=== PATIENT | male | born 1995 | race Caucasian/White ===

== ENCOUNTER 2017-12-26 17:19 | Emergency (ER) | payer OTHER ==
--- NOTE | 2017-12-26 18:50 | ED ---
Respiratory - HPI Summary HPI Summary: 22-year-old male presents with cough and sore throat for the past day. He admits to some fatigue. He admits to occasional fevers. Admits to chest tightness with cough and shortness of breath when he coughs. He denies any abdominal pain. He denies any nausea vomiting or diarrhea. He has been taking ibuprofen with some relief. He states he has a past medical history of asthma that resolved when he was a child. Denies any pain or swelling in his calf muscles. He admits to sinus congestion. He is a smoker. - History of Current Complaint Chief Complaint: EDUpperRespComplaint Stated Complaint: COUGH/SORE THROAT Time Seen by Provider: 12/26/17 17:50 Pain Intensity: 8 - Allergy/Home Medications Allergies/Adverse Reactions: Allergies Allergy/AdvReac Type Severity Reaction Status Date / Time No Known Allergies Allergy Verified 08/04/16 15:54 PMH/Surg Hx/FS Hx/Imm Hx Endocrine/Hematology History: Denies: Hx Anticoagulant Therapy Respiratory History: Reports: Hx Asthma Infectious Disease History: No Infectious Disease History: Denies: Traveled Outside the [place] in Last 30 Days - Family History Known Family History: Positive: Respiratory Disease - Social History Alcohol Use: Rare Substance Use Type: Reports: Marijuana Smoking Status (MU): Current Some Day Smoker Review of Systems Negative: Fever Positive: Sore Throat Positive: Chest Pain Positive: Shortness Of Breath, Cough All Other Systems Reviewed And Are Negative: Yes Physical Exam Triage Information Reviewed: Yes Vital Signs On Initial Exam: Initial Vitals Temp Pulse Resp BP Pulse Ox 99.5 F 110 18 137/89 100 12/26/17 17:27 12/26/17 17:27 12/26/17 17:27 12/26/17 17:27 12/26/17 17:27 Vital Signs Reviewed: Yes Appearance: Positive: Well-Appearing Skin: Positive: Warm, Dry Head/Face: Positive: Normal Head/Face Inspection Eyes: Positive: Normal, EOMI, DEBORAH, Conjunctiva Clear ENT: Positive: Normal ENT inspection, Pharyngeal erythema, TMs normal, Uvula midline, Other - soft palate symmetric. Negative: Tonsillar swelling, Tonsillar exudate, Trismus, Muffled voice Neck: Positive: Supple, Nontender, No Lymphadenopathy Respiratory/Lung Sounds: Positive: Clear to Auscultation, Breath Sounds Present Cardiovascular: Positive: Normal, RRR Abdomen Description: Positive: Nontender, Soft Bowel Sounds: Positive: Present Musculoskeletal: Positive: Normal Neurological: Positive: Normal Psychiatric: Positive: Normal Diagnostics - Vital Signs Vital Signs Temp Pulse Resp BP Pulse Ox 12/26/17 18:04 13 12/26/17 18:03 131/72 12/26/17 17:27 99.5 F 110 18 137/89 100 - Laboratory Lab Results: Lab Results 12/26/17 12/26/17 Range/Units 18:21 18:21 Influenza A (Rapid) Negative (Negative) Influenza B (Rapid) Negative (Negative) Group A Strep Rapid Negative (Negative) Lab Statement: Any lab studies that have been ordered have been reviewed, and results considered in the medical decision making process. - Radiology chest Xray Interpretation: No Acute Changes Radiology Interpretation Completed By: Radiologist Disposition - Course Course Of Treatment: 22-year-old male presents with cough and sore throat for the past day. He admits to some fatigue. He admits to occasional fevers. Admits to chest tightness with cough and shortness of breath when he coughs. He denies any abdominal pain. He denies any nausea vomiting or diarrhea. He has been taking ibuprofen with some relief. He states he has a past medical history of asthma that resolved when he was a child. Denies any pain or swelling in his calf muscles. He admits to sinus congestion. On exam lungs clear to auscultation. Pharynx erythematous. Uvula midline. Soft palate is symmetric. flu and strept negative. Chest x-ray normal. Will treat with magic mouth wash, prednisone, inhaler and Tessalon. Patient understands and agrees with plan. - Differential Dx - Cardiopulmonary Differential Diagnoses - Cardiopulmonary: Bronchitis, Influenza, Lower Resp Infection, Other - strept - Diagnoses Provider Diagnoses: Upper respiratory infection Discharge - Discharge Plan Condition: Good Disposition: HOME Prescriptions: Benzonatate CAP* [Tessalon 100 MG CAP*] 100 mg PO TID PRN #21 cap PRN Reason: Cough Magic Mouth Was-RADHA/MAAL/LIDO* 5 ml SWISH SPIT QID #100 ml predniSONE TAB* [Deltasone TAB*] 50 mg PO DAILY #4 tab Patient Education Materials: Upper Respiratory Infection (ED) Referrals: [facility] [Primary Care Provider] - Additional Instructions: Magic mouthwash 5ml swish and spit can use 4x a day Use Tessalon three times a day for cough Use inhaler one puff every 4 hours for cough as needed Take steroid once a day for 5 days Use saline in the nose for nasal congestion Use humidifier or place warm bowls of water around the room for cough Follow up with primary care physician in 5 days Return to ED if develop any new or worsening symptoms
[2017-12-26] MEDS ORDERED: predniSONE TAB* 20 MG PO ONE (19:05)
--- NOTE | 2017-12-26 19:18 | RAD ---
INDICATION: Chest pain, shortness of breath, cough since yesterday. COMPARISON: March 10, 2017 TECHNIQUE: Dual energy PA and routine lateral views of the chest were obtained. REPORT: Elevated lung volumes. No focal pulmonary lesion, compelling alveolar consolidation, pleural effusion, pneumothorax. The heart, pulmonary vasculature, and mediastinal contours are unremarkable. IMPRESSION: Elevated lung volumes may reflect obstructive lung disease or simply exuberant inspiratory effort for examination. No evidence for pneumonia.
[2017-12-26] MEDS ORDERED: A lbuterol Hfa (PREPAK) 1 MDI - ED TAKE HOME DISPENSING ONLY INHH ONE (19:49)
[2017-12-26] MEDS ORDERED: Benzonatate CAP* 100 MG PO ONE (19:49)
[2017-12-26 20:35] VITALS: BP 128/76
== END 2017-12-26 20:34 | disposition home or self-care (01) ==
LOC: ED 17:19
DX: J06.9 Acute upper respiratory infection, unspecified (principal); F17.200 Nicotine dependence, unspecified, uncomplicated; J45.909 Unspecified asthma, uncomplicated
CPT/HCPCS: 71046; 87502; 87651; 99284; A9270-GY; J7512

== ENCOUNTER → 2018-09-12 | Emergency (ER) | payer MEDICAID, OTHER ==
[~2018-09-12] MED LIST: LORazepam TAB(*) 1 MG PO ONE
[2018-09-12 18:57] LABS: ABS Basophils 0 10^3/ul (0-0.2); ABS Eosinophils 0 10^3/ul (0-0.6); ABS Lymphocytes 0.8 10^3/ul (1.0-4.8); ABS Monocytes 0.5 10^3/ul (0-0.8); ABS Neutrophils 3.7 10^3/ul (1.5-7.7); ABS Nucleated RBC 0 10^3/ul; Eosinophil % 0.6 % (0-6); Hematocrit 40 % (42-52); Hemoglobin 14.2 g/dl (14.0-18.0); Lymphocyte % 16.2 % (25-47); Mean Corpuscular HGB Conc 36 g/dl (31-36); Mean Corpuscular Hemoglobin 32 pg (27-31); Mean Corpuscular Volume 88 fL (80-94); Mean Platelet Volume 8.2 um3 (7.4-10.4); Nucleated Red Blood Cells % 0.1; Platelet Count 196 10^3/ul (150-450); Red Cell Distribution Width 13 % (10.5-15)
[2018-09-12 19:12] LABS: EGFR Non-African American 99.9 (>60)
[2018-09-12 20:08] LABS: Urine Appearance Clear; Urine Blood Negative (Negative); Urine Color Straw; Urine Ketones Negative (Negative); Urine Protein Negative (Negative); Urine Specific Gravity 1.006 (1.010-1.030); Urine Urobilinogen Negative (Negative)
--- NOTE | 2018-09-12 21:22 | ED ---
Psychiatric Complaint - HPI Summary HPI Summary: Patient is a 22 y/o M w/ c/o anxiety and depression. He states that his girlfriend's grandfather, who he was close with and his own grandfather recently . Patient states he has been having difficulty sleeping, noting he has been getting an hour of sleep each day for the past five days. SI, HI denied. He notes that he grew up in a dysfunctional home environment and reports FMHx of depression and anxiety. Patient reports recent back pain as well. Patient denies fever, chills, DELUCA, ear pain, sore throat, blurred vision, double vision, neck pain, CP, SOB, ABD pain, dysuria, hematuria, blood in the stool, edema, bruising, rashes. On triage, pain is denied, nothing is noted to aggravate/ alleviate Sx. Home medications and allergies are reviewed. - History Of Current Complaint Chief Complaint: EDPsychosocial Hx Obtained From: Patient Onset/Duration: Lasting Days, Still Present Timing: Constant Severity Currently: None - pain denied on triage but patient reports back pain in room Character: Depressed, Anxious Aggravating Factor(s): Other - family deaths Alleviating Factor(s): Nothing Associated Signs And Symptoms: Positive: Sleep Disturbance Has Suicidal: Denies: Thoughts Has Homicidal: Denies: Thoughts - Allergies/Home Medications Allergies/Adverse Reactions: Allergies Allergy/AdvReac Type Severity Reaction Status Date / Time Fish Containing Products Allergy Anaphylatic Verified 09/12/18 18:05 Shock shellfish derived Allergy Anaphylatic Verified 09/12/18 18:05 Shock Home Medications: Home Medications Adderall Xr 20 mg Capsule 20 mg PO DAILY 09/12/18 [History Confirmed 09/12/18] PMH/Surg Hx/FS Hx/Imm Hx Endocrine/Hematology History: Denies: Hx Anticoagulant Therapy Respiratory History: Reports: Hx Asthma Sensory History: Denies: Hx Legally Blind, Hx Deafness Opthamlomology History: Denies: Hx Legally Blind EENT History: Denies: Hx Deafness Infectious Disease History: No Infectious Disease History: Denies: Traveled Outside the [place] in Last 30 Days - Family History Known Family History: Positive: Respiratory Disease, Other - FMHx of anxiety, depression - Social History Alcohol Use: Rare Substance Use Type: Reports: Marijuana Smoking Status (MU): Current Some Day Smoker Review of Systems Negative: Fever, Chills Positive: Other - NEGATIVE: double vision . Negative: Blurred Vision Negative: Sore Throat, Ear Ache Negative: Chest Pain Negative: Shortness Of Breath Negative: Abdominal Pain Positive: other - NEGATIVE: blood in stool . Negative: dysuria, hematuria Positive: Other - NEGATIVE: neck pain POSITIVE: back pain . Negative: Edema Negative: Rash, Bruising Negative: Headache Positive: Anxious, Depressed, Other - NEGATIVE: SI, HI All Other Systems Reviewed And Are Negative: No Physical Exam - Summary Physical Exam Summary: Appearance: Alert, conversive, nontoxic appearing Skin: Warm, dry, no mottling, no rashes, no contusions HEENT: EOMI, PERRL, moist mucous membranes Neck: No masses on the neck, supple Respiratory: Clear to auscultation, breath sounds present, no rales, no rhonchi , no wheezes Cardiovascular: RRR, pulses are symmetrical in both lower and upper extremities Abdomen: Soft, non-tender Bowel Sounds: Present Musculoskeletal: No CVA tenderness, no obvious deformity, moving all extremities in a grossly normal manner Neurological: A&Ox3, CN II-XII Intact, moving all extremities symmetrically Psychiatric: anxious, pressured speech, poor insight/judgment Triage Information Reviewed: Yes Vital Signs On Initial Exam: Initial Vitals Temp Pulse Resp BP Pulse Ox 97.6 F 100 16 129/75 100 09/12/18 18:00 09/12/18 18:00 09/12/18 18:00 09/12/18 18:00 09/12/18 18:00 Vital Signs Reviewed: Yes Diagnostics - Vital Signs Vital Signs Temp Pulse Resp BP Pulse Ox 09/12/18 20:29 18 09/12/18 18:00 97.6 F 100 16 129/75 100 - Laboratory Lab Results: Lab Results 09/12/18 09/12/18 09/12/18 Range/Units 18:50 18:50 19:45 WBC 5.0 (3.5-10.8) 10^3/ul RBC 4.50 (4.00-5.40) 10^6/ul Hgb 14.2 (14.0-18.0) g/dl Hct 40 L (42-52) % MCV 88 (80-94) fL MCH 32 H (27-31) pg MCHC 36 (31-36) g/dl RDW 13 (10.5-15) % Plt Count 196 (150-450) 10^3/ul MPV 8.2 (7.4-10.4) um3 Neut % (Auto) 72.8 (38-83) % Lymph % (Auto) 16.2 L (25-47) % [place] % (Auto) 9.8 H (0-7) % Eos % (Auto) 0.6 (0-6) % Baso % (Auto) 0.6 (0-2) % Absolute Neuts (auto) 3.7 (1.5-7.7) 10^3/ul Absolute Lymphs (auto) 0.8 L (1.0-4.8) 10^3/ul Absolute Monos (auto) 0.5 (0-0.8) 10^3/ul Absolute Eos (auto) 0 (0-0.6) 10^3/ul Absolute Basos (auto) 0 (0-0.2) 10^3/ul Absolute Nucleated RBC 0 10^3/ul Nucleated RBC % 0.1 Sodium 140 (135-145) mmol/L Potassium 3.9 (3.5-5.0) mmol/L Chloride 106 (101-111) mmol/L Carbon Dioxide 29 (22-32) mmol/L Anion Gap 5 (2-11) mmol/L BUN 10 (6-24) mg/dL Creatinine 0.96 (0.67-1.17) mg/dL Est GFR ( Amer) 120.8 (>60) Est GFR (Non-Af Amer) 99.9 (>60) BUN/Creatinine Ratio 10.4 (8-20) Glucose 89 (70-100) mg/dL Calcium 9.6 (8.6-10.3) mg/dL Total Bilirubin 0.70 (0.2-1.0) mg/dL AST 20 (13-39) U/L ALT 20 (7-52) U/L Alkaline Phosphatase 68 (34-104) U/L Total Protein 6.9 (6.4-8.9) g/dL Albumin 4.4 (3.2-5.2) g/dL Globulin 2.5 (2-4) g/dL Albumin/Globulin Ratio 1.8 (1-3) TSH 1.38 (0.34-5.60) mcIU/mL Urine Color Straw Urine Appearance Clear Urine pH 7.0 (5-9) Ur Specific [place] 1.006 L (1.010-1.030) Urine Protein Negative (Negative) Urine Ketones Negative (Negative) Urine Blood Negative (Negative) Urine Nitrate Negative (Negative) Urine Bilirubin Negative (Negative) Urine Urobilinogen Negative (Negative) Ur Leukocyte Esterase Negative (Negative) Urine Glucose Negative (Negative) Salicylates < 2.50 (<30) mg/dL Urine Opiates Screen (None Detect) Acetaminophen < 15 mcg/mL Ur Barbiturates Screen (None Detect) Ur Phencyclidine Scrn (None Detect) Ur Amphetamines Screen (None Detect) U Benzodiazepines Scrn (None Detect) Urine Cocaine Screen (None Detect) U Cannabinoids Screen (None Detect) Serum Alcohol < 10 (<10) mg/dL 09/12/18 Range/Units 19:45 WBC (3.5-10.8) 10^3/ul RBC (4.00-5.40) 10^6/ul Hgb (14.0-18.0) g/dl Hct (42-52) % MCV (80-94) fL MCH (27-31) pg MCHC (31-36) g/dl RDW (10.5-15) % Plt Count (150-450) 10^3/ul MPV (7.4-10.4) um3 Neut % (Auto) (38-83) % Lymph % (Auto) (25-47) % [place] % (Auto) (0-7) % Eos % (Auto) (0-6) % Baso % (Auto) (0-2) % Absolute Neuts (auto) (1.5-7.7) 10^3/ul Absolute Lymphs (auto) (1.0-4.8) 10^3/ul Absolute Monos (auto) (0-0.8) 10^3/ul Absolute Eos (auto) (0-0.6) 10^3/ul Absolute Basos (auto) (0-0.2) 10^3/ul Absolute Nucleated RBC 10^3/ul Nucleated RBC % Sodium (135-145) mmol/L Potassium (3.5-5.0) mmol/L Chloride (101-111) mmol/L Carbon Dioxide (22-32) mmol/L Anion Gap (2-11) mmol/L BUN (6-24) mg/dL Creatinine (0.67-1.17) mg/dL Est GFR ( Amer) (>60) Est GFR (Non-Af Amer) (>60) BUN/Creatinine Ratio (8-20) Glucose (70-100) mg/dL Calcium (8.6-10.3) mg/dL Total Bilirubin (0.2-1.0) mg/dL AST (13-39) U/L ALT (7-52) U/L Alkaline Phosphatase (34-104) U/L Total Protein (6.4-8.9) g/dL Albumin (3.2-5.2) g/dL Globulin (2-4) g/dL Albumin/Globulin Ratio (1-3) TSH (0.34-5.60) mcIU/mL Urine Color Urine Appearance Urine pH (5-9) Ur Specific [place] (1.010-1.030) Urine Protein (Negative) Urine Ketones (Negative) Urine Blood (Negative) Urine Nitrate (Negative) Urine Bilirubin (Negative) Urine Urobilinogen (Negative) Ur Leukocyte Esterase (Negative) Urine Glucose (Negative) Salicylates (<30) mg/dL Urine Opiates Screen None detected (None Detect) Acetaminophen mcg/mL Ur Barbiturates Screen None detected (None Detect) Ur Phencyclidine Scrn None detected (None Detect) Ur Amphetamines Screen None detected (None Detect) U Benzodiazepines Scrn Presumptive positive A (None Detect) Urine Cocaine Screen None detected (None Detect) U Cannabinoids Screen Presumptive positive A (None Detect) Serum Alcohol (<10) mg/dL Result Diagrams: 09/12/18 18:50 09/12/18 18:50 Lab Statement: Any lab studies that have been ordered have been reviewed, and results considered in the medical decision making process. Course/Dx - Course Course Of Treatment: Patient is a 22 y/o M w/ c/o anxiety and depression. He states that his girlfriend's grandfather, who he was close with and his own grandfather recently . Patient states he has been having difficulty sleeping , noting he has been getting an hour of sleep each day for the past five days. SI, HI denied. He notes that he grew up in a dysfunctional home environment and reports FMHx of depression and anxiety. On physical exam, patient is noted to be anxious, have pressured speech, poor insight/judgment. Tox showed presumptive positive of cannabinoids and benzodiazepines. UA was negative. Labs were unremarkable. Patient was medically cleared for MHE. Patient will be signed out to Dr. Hopson pending MHE. Dx of anxiety and depression. - Differential Dx/Clinical Impression Provider Diagnosis: Depression Discharge - Sign-Out/Discharge Documenting (check all that apply): Sign-Out Patient Signing out patient TO: Chester Hopson Receiving patient FROM: Bebe Hunt - Discharge Plan Condition: Stable Disposition: HOME Patient Education Materials: Depression (ED), Anxiety (ED) Referrals: [facility] [[employer], APPLICATION, OTHER] - Additional Instructions: Per completion of a mental health evaluation, you are cleared for release and do not require inpatient psychiatric hospitalization at this time. Please go to nearest emergency room or call 911 if safety concerns arise or condition worsens. Contact your psychiatrist at home for prescription. Contact [facility] for counseling. [facility] Main Hours: Wednesday from 8:00 a.m. - 8:00 p.m. Wednesday from 8:00a.m. - 6:00 p.m. Saturdays from 11:00 a.m. - 4:00 p.m. Closed on Sundays Important Phone Numbers: [facility] [phone] Suicide Prevention and Crisis Services........................ [phone] National Suicide Prevention Lifeline............................ 570-001-JVAO (9817) [facility]....................... [phone] Alcoholics Anonymous............................................... [place] [facility].............. [phone] [facility] Police.............................................. [phone] - Billing Disposition and Condition Condition: STABLE Disposition: Home - Attestation Statements Document Initiated by Erasmo: Yes Documenting Scribe: Andrey Disla Provider For Whom Erasmo is Documenting (Include Credential): Bebe Hunt MD Scribe Attestation: I, Andrey Disla , scribed for Bebe Hunt MD on 09/15/18 at 1749. Scribe Documentation Reviewed: Yes Provider Attestation: The documentation as recorded by the Andrey fisher accurately reflects the service I personally performed and the decisions made by me, Bebe Hunt MD
--- NOTE | 2018-09-12 22:27 | ED ---
Progress - Progress Note Progress Note: Patient signed out from Dr. Hunt, pending MHE and disposition at shift change. At 23:26 Ativan was ordered due to the patient being difficult and upset. Per MH investigator vice, patient will be discharged. Course/Dx - Course Course Of Treatment: Patient signed out from Dr. Hunt, pending MHE and disposition at shift change. At 23:26 Ativan was ordered due to the patient being difficult and upset. Per MH investigator vice, patient will be discharged. Discharge - Sign-Out/Discharge Documenting (check all that apply): Patient Departure - DC - Discharge Plan Condition: Stable Disposition: HOME Patient Education Materials: Depression (ED), Anxiety (ED) Referrals: [facility] [[employer], APPLICATION, OTHER] - Additional Instructions: Per completion of a mental health evaluation, you are cleared for release and do not require inpatient psychiatric hospitalization at this time. Please go to nearest emergency room or call 911 if safety concerns arise or condition worsens. Contact your psychiatrist at home for prescription. Contact [facility] for counseling. [facility] Main Hours: Wednesday from 8:00 a.m. - 8:00 p.m. Wednesday from 8:00a.m. - 6:00 p.m. Saturdays from 11:00 a.m. - 4:00 p.m. Closed on Sundays Important Phone Numbers: [facility] [phone] Suicide Prevention and Crisis Services........................ [phone] National Suicide Prevention Lifeline............................ 224-697-RBPT (2683) [facility]....................... [phone] Alcoholics Anonymous............................................... [facility].............. [phone] [facility] Police.............................................. [phone] - Attestation Statements Document Initiated by Scribe: Yes Documenting Scribe: Ronald Stanley Provider For Whom Erasmo is Documenting (Include Credential): Chester Hopson MD Scribe Attestation: IRonald, scribed for Chester Hopson MD on 09/13/18 at 0603.
[2018-09-13 03:25] VITALS: BP 0/0
== END | disposition home or self-care (01) ==
LOC: ED 17:57
DX: F41.8 Other specified anxiety disorders (principal); G47.9 Sleep disorder, unspecified; F17.210 Nicotine dependence, cigarettes, uncomplicated; M54.9 Dorsalgia, unspecified
CPT/HCPCS: 36415; 80053; 80307; 80320; 80329; 81003; 84443; 85025; 99285; A9270-GY; G0480